=== PATIENT | female | born 1985 | race African-American/Black ===

== ENCOUNTER 2016-08-24 04:59 | Emergency (ER) | payer BC, OTHER ==
[~2016-08-24] VITALS: Ht 162.6 cm; Wt 61.7 kg
[~2016-08-24 04:59] MED LIST: AMETHIA 0.15-01 EAC1; BENADRYL25 MG; BENADRYL25 MG PO; CLARITIN10 M2 PO; DIFLUCAN150 MG PO; FERRO-TIME325 MG PO; IBUPROFEN 600600 M1 PO; MOBIC15 MG PO; NAPROSYN500 MG PO; NORCO 5-325 TA1 EACH PO; PENICILLIN V P500 MG PO; PENICILLIN VK500 M1 PO; PREDNISONE 20 M20 M1 PO; PREDNISONE 20 M20 MG PO; ULTRAM 50MG TAB50 MG PO; ZOFRAN ODT4 MG PO
[2016-08-24] MEDS ORDERED: ZOFRAN ODT4 MG PO (05:50)
[2016-08-24] MEDS ORDERED: PHENERGAN 25 MG25 M1 PO (05:50)
[2016-08-24] MEDS ORDERED: LOPERAMIDE 2 MG2 M1 PO (06:02)
[2016-08-24 06:14] VITALS: BP 105/62
== END 2016-08-24 06:17 | disposition home or self-care (01) ==
LOC: ER 04:59
DX: F17.210 Nicotine dependence, cigarettes, uncomplicated (principal)

== ENCOUNTER → 2016-09-16 | Outpatient (CLI) | payer BC, OTHER ==
[~2016-09-16] MED LIST changes: +LOPERAMIDE 2 MG2 M1 PO; +PHENERGAN 25 MG25 M1 PO
== END ==
LOC: ULTRA 08:11
DX: R10.84 Generalized abdominal pain (principal)

== ENCOUNTER 2016-09-27 21:19 | Emergency (ER) | payer BC, OTHER ==
[~2016-09-27] VITALS: Ht 162.6 cm; Wt 59.0 kg
[2016-09-27 21:23] VITALS: BP 114/84
[2016-09-27] MEDS ORDERED: OMEPRAZOLE 20 M20 M1 PO (21:25)
[2016-09-27] MEDS ORDERED: BACTRIM DS TAB1 EACH PO (21:25)
[2016-09-27] MEDS ORDERED: PHENERGAN 25 MG25 M1 PO (21:25)
[2016-09-27] MEDS ORDERED: PROMS25 WY RECTAL (22:09)
== END 2016-09-27 22:42 | disposition home or self-care (01) ==
LOC: ER 21:19
DX: R11.2 Nausea with vomiting, unspecified (principal); F17.210 Nicotine dependence, cigarettes, uncomplicated; F15.10 Other stimulant abuse, uncomplicated

== ENCOUNTER → 2016-11-02 | Outpatient (CLI) | payer BC, OTHER ==
[~2016-11-02] MED LIST changes: +BACTRIM DS TAB1 EACH PO; +OMEPRAZOLE 20 M20 M1 PO; +PROMS25 WY RECTAL
== END ==
LOC: CAT 10-19 08:32 → EDSTATUS 10-19 08:51 → CAT 10-19 11:24
DX: R10.30 Lower abdominal pain, unspecified (principal)

== ENCOUNTER → 2017-05-12 | Outpatient (CLI) | payer BC, OTHER | LOC: NUC 06:28 | DX: R10.13 Epigastric pain (principal); R11.0 Nausea ==

== ENCOUNTER 2019-11-05 13:17 | Emergency (ER) | payer BC ==
[~2019-11-05] VITALS: Ht 162.6 cm; Wt 60.8 kg
[2019-11-05 13:26] VITALS: BP 138/79
[2019-11-05 13:42] LABS: URINE BILIRUBIN NEGATIVE (Negative); URINE BLOOD NEGATIVE (Negative); URINE CLARITY CLEAR; URINE COLOR YELLOW; URINE GLUCOSE-RANDOM* NEGATIVE (Negative); URINE KETONES NEGATIVE (Negative); URINE LEUKOCYTES-REFLEX 1+ (Negative); URINE NITRITE-REFLEX NEGATIVE (Negative); URINE PROTEIN (DIPSTICK) NEGATIVE (Negative); URINE SPECIFIC GRAVITY <= 1.005 (1.005-1.035); URINE UROBILINOGEN 0.2 E.U./dl (0.2-1.0)
[2019-11-05 13:49] LABS: BACTERIA-REFLEX 1-9 Few /HPF (None Seen); CASTS None Seen /LPF (None Seen); CRYSTALS None Seen /LPF (None Seen); SQUAMOUS 0-3 Few /LPF (0-3); URINE RBC 0-2 Rare /HPF (0-2); URINE WBC-REFLEX 6-15 Few /HPF (0-5)
[2019-11-05] MEDS ORDERED: KEFLEX500 M1 PO (15:01)
[2019-11-05] MEDS ORDERED: FLAGYL500 M1 PO (15:01)
[2019-11-05] MEDS ORDERED: DIFLUCAN150 MG PO (15:01)
== END 2019-11-05 15:40 | disposition home or self-care (01) ==
LOC: ER 13:17
PROVIDERS: Emergency Medicine
DX: N39.0 Urinary tract infection, site not specified (principal); N76.0 Acute vaginitis; B96.89 Other specified bacterial agents as the cause of diseases classified elsewhere; F17.210 Nicotine dependence, cigarettes, uncomplicated; Z79.899 Other long term (current) drug therapy

== ENCOUNTER 2020-05-29 12:14 | Emergency (ER) | payer OTHER ==
[~2020-05-29] VITALS: Ht 165.1 cm; Wt 57.1 kg
[~2020-05-29 12:14] MED LIST changes: +FLAGYL500 M1 PO; +KEFLEX500 M1 PO
[2020-05-29 12:49] LABS: URINE BILIRUBIN NEGATIVE (Negative); URINE BLOOD NEGATIVE (Negative); URINE CLARITY CLEAR; URINE COLOR YELLOW; URINE GLUCOSE-RANDOM* NEGATIVE (Negative); URINE KETONES NEGATIVE (Negative); URINE LEUKOCYTES-REFLEX TRACE (Negative); URINE NITRITE-REFLEX NEGATIVE (Negative); URINE PROTEIN (DIPSTICK) NEGATIVE (Negative); URINE SPECIFIC GRAVITY 1.015 (1.005-1.035); URINE UROBILINOGEN 0.2 E.U./dl (0.2-1.0)
[2020-05-29] MEDS ORDERED: MOBIC7.5 MG PO (14:01)
[2020-05-29 14:02] VITALS: BP 132/75
--- NOTE | 2020-05-30 07:04 | EKG ---
[place] [address] [facility] [place] [address] ELECTROCARDIOGRAM REPORT Name: ADRIÁN FARRIS [id number] Admission: 05/29/20 Attend Phys: Discharge: 05/29/20 Date of : 81 Report #: [id number] [facility] ED Test Date: 2020-05-29 Test Time: 12:22:03 Pat Name: ADRIÁN FARRIS Department: Room: Gender: F Communication Center Operator: USSIE : 1985 Requested By: Piyush Scott Order Number: [id number] MD: Geronimo Lynne Measurements Intervals [place] Rate: 76 P: 78 TX: 152 QRS: 46 QRSD: 72 T: 27 QT: 373 QTc: 420 Interpretive Statements Sinus rhythm Probable left atrial enlargement Borderline T wave abnormalities Compared to ECG 05/15/2010 05:42:32 No significant changes Electronically Signed On 05-30-2020 7:04:26 CDT by Geronimo Lynne [email or web address] <ELECTRONICALLY SIGNED> By: Geronimo Lynne MD, [facility] 05/30/20 0704 1222 1222 Geronimo Lynne MD, FACC /EPI
== END 2020-05-29 14:02 | disposition home or self-care (01) ==
LOC: ER 12:14
PROVIDERS: Nurse Practitioner
DX: M94.0 Chondrocostal junction syndrome [Tietze] (principal); F17.210 Nicotine dependence, cigarettes, uncomplicated; Z98.51 Tubal ligation status

== ENCOUNTER 2021-02-10 17:00 | Emergency (ER) | payer OTHER ==
[~2021-02-10 17:00] MED LIST changes: +MOBIC7.5 MG PO
== END 2021-02-10 17:57 | disposition left against medical advice (07) ==
LOC: ER 17:00
DX: R10.9 Unspecified abdominal pain (principal); Z53.21 Procedure and treatment not carried out due to patient leaving prior to being seen by health care provider